=== PATIENT | male | born 1960 | race Caucasian/White ===

== ENCOUNTER 2016-12-13 22:17 | Emergency (ER) | payer MEDICARE ==
[~2016-12-13] VITALS: Ht 170.2 cm; Wt 80.5 kg
[~2016-12-13 22:17] MED LIST: ALPR-138 PO; ATOR80TA PO; BACL10TA PO; CEPH500C3 PO; LEVE500T10 PO; LORTA10 PO; TOPA25TA8 PO; WARF-60 PO
[2016-12-13 22:40] VITALS: BP 107/73; PULSE 70; RESP 18; TEMP 98.9; O2SAT 96
[2016-12-14] MEDS ORDERED: TOPA50TA7 PO (00:10)
[2016-12-14] MEDS ORDERED: ALPR0.25 PO (00:10)
[2016-12-14] MEDS ORDERED: LEVE500T8 PO (00:10)
[2016-12-14] MEDS ORDERED: BACL10TA PO (00:10)
[2016-12-14] MEDS ORDERED: ATOR40TA16 PO (00:10)
[2016-12-14] MEDS ORDERED: HYDR-3111 PO (00:10)
[2016-12-14] MEDS ORDERED: WARF-23 PO (00:47)
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
--- NOTE | 2016-12-14 01:18 | RADHPO ---
EXAM DATE/TIME: 12/14/2016 00:58 [facility] COMPARISON: No previous studies available for comparison. INDICATIONS : Great toe pain after patient dropped dish onto toe yesterday MEDICAL HISTORY : None. SURGICAL HISTORY : None. ENCOUNTER: Initial ACUITY: 1 day PAIN SCORE: 9/10 LOCATION: Right entire great toe FINDINGS: Examination of the first digit of the right foot demonstrates no evidence of fracture or dislocation. No radiopaque foreign bodies are seen. The soft tissues are intact. CONCLUSION: Unremarkable examination of the right first toe. Gera Salter MD on December 14, 2016 at 1:16 Board Certified Radiologist. This report was verified electronically.
[2016-12-14] MEDS ORDERED: CEPH-460 PO (01:26)
== END 2016-12-14 01:46 | disposition home or self-care (01) ==
LOC: PHED 22:17
DX: S97.111A Crushing injury of right great toe, initial encounter (principal); B35.1 Tinea unguium; Z79.01 Long term (current) use of anticoagulants; E78.00 Pure hypercholesterolemia, unspecified; Y93.89 Activity, other specified; W22.8XXA Striking against or struck by other objects, initial encounter; Y92.89 Other specified places as the place of occurrence of the external cause; Y99.8 Other external cause status; Z86.73 Personal history of transient ischemic attack (TIA), and cerebral infarction without residual deficits; Z95.2 Presence of prosthetic heart valve
CPT/HCPCS: 73660; 99283